=== PATIENT | male | born 1980 | race Caucasian/White ===

== ENCOUNTER 2016-10-06 17:53 | Emergency (ER) | payer MEDICAID ==
[~2016-10-06] VITALS: Ht 193 cm; Wt 106.8 kg
[2016-10-06 18:05] VITALS: BP 124/92
== END 2016-10-06 19:06 | disposition left against medical advice (07) ==
LOC: EMS 17:54
DX: L03.115 Cellulitis of right lower limb (principal); E78.00 Pure hypercholesterolemia, unspecified; F17.210 Nicotine dependence, cigarettes, uncomplicated; Z53.21 Procedure and treatment not carried out due to patient leaving prior to being seen by health care provider

== ENCOUNTER 2017-07-31 06:40 | Emergency (ER) | payer MEDICAID, OTHER ==
[~2017-07-31] VITALS: Ht 193 cm; Wt 100.0 kg
[2017-07-31] MEDS ORDERED: CLON1 PO (06:42)
[2017-07-31] MEDS ORDERED: DIVA125T PO (06:42)
[2017-07-31] MEDS ORDERED: PERTUSS(ACELL),DIPH,TET VAC/PF 0.5 ML VIAL IM ONE (07:30)
[2017-07-31 07:47] VITALS: BP 146/86
[2017-07-31] MEDS ORDERED: NALOXONE HCL 1 MG/ML 2 ML SYG ONE (09:29)
[2017-07-31] MEDS ORDERED: NALOXONE HCL 1 MG/ML 2 ML SYG IM ONE (09:30)
[2017-07-31] MEDS: ACETAMINOPHEN 500 MG TABLET PO ONE ×2 (09:52→10:13)
== END 2017-07-31 10:16 | disposition home or self-care (01) ==
LOC: EMS 06:42
DX: S62.337A Displaced fracture of neck of fifth metacarpal bone, left hand, initial encounter for closed fracture (principal); S01.01XA Laceration without foreign body of scalp, initial encounter; R41.82 Altered mental status, unspecified; E78.00 Pure hypercholesterolemia, unspecified; F17.210 Nicotine dependence, cigarettes, uncomplicated; F11.90 Opioid use, unspecified, uncomplicated; Z88.6 Allergy status to analgesic agent; Z76.0 Encounter for issue of repeat prescription; W22.8XXA Striking against or struck by other objects, initial encounter; Y93.89 Activity, other specified; Y92.89 Other specified places as the place of occurrence of the external cause; Y99.8 Other external cause status
CPT/HCPCS: 12001; 29125; 70450; 73130; 90471; 90715; 93005; 96372; 99284; J2310

== ENCOUNTER 2017-10-03 01:28 | Emergency (ER) | payer OTHER ==
[~2017-10-03 01:28] MED LIST: CLON1 PO; DIVA125T PO
== END 2017-10-03 03:38 | disposition left against medical advice (07) ==
LOC: EMS 01:30
DX: R07.81 Pleurodynia (principal); Z53.21 Procedure and treatment not carried out due to patient leaving prior to being seen by health care provider

== ENCOUNTER 2019-07-03 16:49 | Emergency (ER) | payer OTHER ==
[~2019-07-03] VITALS: Ht 188 cm; Wt 109.1 kg
[~2019-07-03 16:49] MED LIST changes: -CLON1 PO; +CLON1TAB13 PO; -DIVA125T PO; +DIVA125T32 PO
[2019-07-03] MEDS ORDERED: AMOX250C4 PO (16:57)
[2019-07-03 18:29] LABS: LACTIC ACID 1.7 mmol/L (0.4-2.0)
[2019-07-03 18:33] LABS: ANION GAP 10 mmol/L (8-16); CALCIUM, TOTAL 8.9 mg/dL (8.8-10.5); CARBON DIOXIDE 25 mmol/L (22-29); CHLORIDE 101 mmol/L (98-107); CREATININE 0.89 mg/dL (0.60-1.30); GLOMERULAR FILTR. RATE CALC > 60 mL/min (>60); GLUCOSE,RANDOM 92 mg/dL (70-110); POTASSIUM 4.5 mmol/L (3.5-5.1); SODIUM SERUM 136 mmol/L (136-145)
[2019-07-03 18:38] LABS: ALANINE AMINOTRANSFERASE 58 U/L (12-78); ALBUMIN 3.4 g/dL (3.4-5.0); ALKALINE PHOSPHATASE 107 U/L (46-116); ASPARTATE AMINOTRANSFERASE 59 U/L (15-37); BILIRUBIN,TOTAL 0.3 mg/dL (0.1-1.0); TOTAL PROTEIN, SERUM 9.7 g/dL (6.4-8.2)
[2019-07-03 18:55] LABS: BASOPHILS % (AUTO) 0.6 % (0.0-2.0); HEMATOCRIT 38.5 % (41-53); HEMOGLOBIN 12.9 g/dL (13.5-17.5); LYMPHOCYTES # (AUTO) 2.1 K/uL (1.0-4.8); LYMPHOCYTES % (AUTO) 29.3 % (22.0-44.0); MEAN CORPUSCULAR HEMOGLOBIN 28.8 pg (26.0-34.0); MEAN CORPUSCULAR HGB CONC 33.5 G/dL (31.0-37.0); MEAN CORPUSCULAR VOLUME 86 fL (80-100); MONOCYTES # (AUTO) 0.6 K/uL (0.1-1.0); MONOCYTES % (AUTO) 8.7 % (2.0-9.0); NEUTROPHILS # (AUTO) 4.2 K/uL (1.8-7.7); NEUTROPHILS % (AUTO) 59.4 % (40.0-70.0); PLATELET COUNT (AUTO) 248 K/uL (150-450); RED BLOOD CELL COUNT(AUTO) 4.48 MIL/uL (4.50-5.90); RED CELL DISTRIBUTION WIDTH 14.1 % (11.5-14.5)
[2019-07-03 19:06] LABS: UREA NITROGEN, BLOOD 24 mg/dL (7-18)
[2019-07-03] MEDS ORDERED: IOVERSOL 350 MG/ML 150 ML VIAL ONE (19:24)
[2019-07-03 19:28] LABS: B-TYPE NATRIURETIC PEPTIDE 52 pg/mL (0-100)
[2019-07-03 19:37] VITALS: BP 132/89
== END 2019-07-03 22:54 | disposition home or self-care (01) ==
LOC: EMS 16:50
DX: L03.116 Cellulitis of left lower limb (principal); E86.0 Dehydration; F11.10 Opioid abuse, uncomplicated; E78.00 Pure hypercholesterolemia, unspecified; F17.210 Nicotine dependence, cigarettes, uncomplicated; F19.10 Other psychoactive substance abuse, uncomplicated; Z86.19 Personal history of other infectious and parasitic diseases; Z88.6 Allergy status to analgesic agent; Z88.1 Allergy status to other antibiotic agents; Z79.899 Other long term (current) drug therapy
CPT/HCPCS: 36415; 73701; 80053; 83605; 83880; 85025; 87040; 99284; 99406; Q9967

== ENCOUNTER 2020-03-30 13:34 | Emergency (ER) | payer OTHER ==
[~2020-03-30] VITALS: Ht 193 cm; Wt 102.3 kg
[~2020-03-30 13:34] MED LIST changes: +AMOX250C4 PO
[2020-03-30] MEDS ORDERED: CEPHALEXIN MONOHYDRATE 500 MG CAPSULE PO ONE (14:45)
[2020-03-30] MEDS ORDERED: ACETAMINOPHEN 500 MG TABLET PO ONE (14:45)
[2020-03-30] MEDS ORDERED: SULFAMETHOX/TRIMETH DS 800-160 MG/TABLET PO ONE (14:45)
[2020-03-30 15:05] VITALS: BP 117/69
== END 2020-03-30 15:20 | disposition home or self-care (01) ==
LOC: EMS 13:35
DX: L02.413 Cutaneous abscess of right upper limb (principal); L03.113 Cellulitis of right upper limb; E78.00 Pure hypercholesterolemia, unspecified; F17.210 Nicotine dependence, cigarettes, uncomplicated; F11.90 Opioid use, unspecified, uncomplicated; F19.90 Other psychoactive substance use, unspecified, uncomplicated; Z88.6 Allergy status to analgesic agent
CPT/HCPCS: 99406

== ENCOUNTER 2020-06-24 14:18 | Emergency (ER) | payer OTHER ==
[~2020-06-24] VITALS: Ht 193 cm; Wt 102.3 kg
[~2020-06-24 14:18] MED LIST changes: +CLON-595 PO; -CLON1TAB13 PO
[2020-06-24] MEDS ORDERED: CEPHALEXIN MONOHYDRATE 500 MG CAPSULE PO ONE (15:15)
[2020-06-24] MEDS ORDERED: SULFAMETHOX/TRIMETH DS 800-160 MG/TABLET PO ONE (15:15)
[2020-06-24 16:12] VITALS: BP 137/89
== END 2020-06-24 16:13 | disposition home or self-care (01) ==
LOC: EMS 14:22
DX: L03.113 Cellulitis of right upper limb (principal); E78.00 Pure hypercholesterolemia, unspecified; F17.210 Nicotine dependence, cigarettes, uncomplicated; F12.90 Cannabis use, unspecified, uncomplicated; F15.90 Other stimulant use, unspecified, uncomplicated; Z88.6 Allergy status to analgesic agent; Z79.899 Other long term (current) drug therapy